=== PATIENT | male | born 1955 | race Caucasian/White ===

== ENCOUNTER 2019-12-04 20:48 | Observation (INO) ==
--- OUTSIDE RECORDS SUMMARY | 2019-12-04 20:49 | External Medical Summary | Continuity of Care Document ---
:1955 Author Name Courtney Trejo Address Unavailable Unavailable , Care Team Providers Name Role Phone [email or web address], [email or web address] Unavailable Unavailable Unavailable Unavailable Unavailable Assessments Assessed Problems:Shortness of breath Problems Shortness of breath (786.05) (R06.02) Allergies and Adverse Reactions Allergy history not documented Medications Ventolin HFA 108 (90 Base) MCG/ACT Inhal ation Aerosol Solution; Inhale 2 puffs by inhalation route every 4 - 6 hours as needed DO Julianne Tejeda Start: 15-Feb-2015 Quantity: 18 Refills: 0 Procedures Procedures not documented Immunizations Immunizations not documented Plan of Treatment Planned Observations Planned Goals not documented Results No Known Results Results not documented
[2019-12-04] MEDS ORDERED: SODIUM CHLORIDE 0.9% 1000ML 1,000 ML IV SCH (21:15)
[2019-12-04 21:26] LABS: Basophils # (auto) 0.01 K/uL (0-0.2); Basophils % (auto) 0.1 %; Eosinophils # (auto) 0.06 K/uL (0-0.5); Eosinophils % (auto) 0.8 %; Hematocrit (blood only) 45.1 % (42-52); Hemoglobin 15.2 g/dL (14.0-18.0); Immature Granulocytes # (auto) 0.03 K/uL (0.00-0.02); Immature Granulocytes % (auto) 0.4 %; Lymphocytes # (auto) 1.76 K/uL (1.2-3.4); Lymphocytes % (auto) 24.9 %; Mean Corpuscular Hemoglobin 29.3 pg (25-34); Mean Corpuscular Hgb Conc 33.7 g/dL (32-36); Mean Corpuscular Volume 86.9 fL (80-100); Mean Platelet Volume 11.8 fL (7.4-10.4); Monocytes # (auto) 0.41 K/uL (0.11-0.59); Monocytes % (auto) 5.8 %; Neutrophils # (auto) 4.81 K/uL (1.4-6.5); Platelet Count 120 K/uL (130-400); RDW Coefficient of Variation 13.1 % (11.5-14.5); RDW Standard Deviation 41.9 fL (36.4-46.3); Red Blood Count 5.19 M/uL (4.7-6.1); White Blood Count 7.08 K/uL (4.8-10.8)
[2019-12-04] MEDS ORDERED: SODIUM CHLORIDE 0.9% 250 ML IV PRN (21:27)
--- NOTE | 2019-12-04 21:27 | Emergency Department Note ---
History of Present Illness General Chief complaint: Rectal Bleed Stated complaint: rectal bleed Time Seen by Provider: 12/04/19 20:59 Source: patient and family ( who is at the bedside) Mode of arrival: ambulatory Limitations: no limitations History of Present Illness This patient comes in after having blood in his stool. He had a colonoscopy done in [facility] today by Dr. Gomez. The patient reports that he had 5 polyps removed 3 that were frozen into by heat. He started having stomach gurgling around 6:00 and had liquid stool that was bright red blood he is had about 10 episodes. He does not have any significant abdominal pain. He is not on any blood thinners. No fever or chills or nausea or vomiting. He was COVID tested negative on Wednesday prior to the procedure. He is not been lightheaded or dizzy. No chest pain shortness of breath or cough. He does have a known history of polyps. Home Medications Home Medications Medication Instructions Recorded Confirmed Type albuterol sulfate 1 puff INHALATION Q4 PRN 12/04/19 12/04/19 History fluticasone propion-salmeterol 1 inh INHALATION BID 12/04/19 12/04/19 History [Wixela Inhub] olknoulp-onq-DU-lycopen-lutein 1 tab PO DAILY 12/04/19 12/04/19 History [Centrum Silver Men] Allergies Allergy/AdvReac Type Severity Reaction Status Date / Time Fish Containing Products Allergy Severe ANAPHYLAXIS Verified 12/04/19 21:46 levofloxacin Allergy Intermediate SOB-HIVES Verified 12/04/19 21:46 Penicillins Allergy Intermediate SOB--HIVES Verified 12/04/19 21:46 Past Med/Surg History Social History Preferred Language: Lao Feels Safe at Home: Yes Smoking Status: Former smoker Review of Systems A total of 10 systems reviewed and were otherwise negative Physical Exam Vital Signs Vital Signs - 24 hr 12/04/19 20:52 12/04/19 21:28 12/04/19 22:21 Temperature 36.5 C Temperature Source Oral Pulse Rate 76 Pulse Rate [Apical] 84 Respiratory Rate 16 18 Respiratory Effort / Characteristics Non-Labored Spontaneous Non-Labored Respiratory Depth Normal Normal Respiratory Pattern Regular Blood Pressure 147/84 H Blood Pressure [Right Arm] 131/75 Blood Pressure Mean 105 Blood Pressure Mean [Right Arm] 93 Pulse Oximetry 95 97 Oxygen Delivery Method Room Air Room Air Room Air Sepsis Recent Fever Within 48 Hours No Sepsis New/Unexplained Change in Mental Status No Sepsis Action Taken by Nursing No Action Required General: Well developed well nourished middle-age male who in no acute distress, breathing comfortably on room air. Normal speech HEENT: Normal cephalic atraumatic. Pupils are equal round and reactive to light. Sclera are anicteric extraocular movements are intact. Oropharynx is pink with moist mucous membranes. No swelling of the mouth lips or tongue. Neck: Supple with a midline trachea. No meningeal signs or stiffness, no JVD or bruits. No Stridor. Chest: Clear to auscultation bilaterally. No wheezes or rhonchi. No increased work of breathing. Heart: Regular rate and rhythm without murmurs or gallops. Abdomen: Soft nontender, nondistended without rebound guarding or rigidity. He did have a bowel movement in a hat in the toilet and it was a about 75 cc of maroon stool Extremities: No cyanosis clubbing or edema. No calf tenderness or assymetry Spine/Back. Non tender to palpation. No CVA tenderness Skin: Good turgor without rashes. Neurologic exam: Cranial nerves two through 12 are intact. Motor and sensation are intact and symmetrical throughout. Course Administered Medications Discontinued Medications Sodium Chloride (Nss 1000ml) 1,000 mls @ 999 mls/hr IV .Q1H1M DEIDRE Stop: 12/04/19 22:15 Last Infusion: 12/04/19 22:19 Dose: 0 mls/hr Documented by: [id number] Admin: 12/04/19 21:20 Dose: 999 mls/hr Documented by: [id number] Medical Decision Making Differential Diagnosis GI bleed, post procedure complication, anemia, infection, electrolyte or metabolic abnormality Medical Records Attestation: I reviewed the patient's medical records. Home Medications Current Medication List: was personally reviewed by me Laboratory Data Attestation: I reviewed the patient's lab results. Result diagrams: 12/04/19 21:16 12/04/19 21:16 Lab Results 12/04/19 12/04/19 12/04/19 Range/Units 21:15 21:16 21:16 WBC 7.08 (4.8-10.8) K/uL RBC 5.19 (4.7-6.1) M/uL Hgb 15.2 (14.0-18.0) g/dL Hct 45.1 (42-52) % MCV 86.9 (80-100) fL MCH 29.3 (25-34) pg MCHC 33.7 (32-36) g/dL RDW Std Deviation 41.9 (36.4-46.3) fL RDW Coeff of Kody 13.1 (11.5-14.5) % Plt Count 120 L (130-400) K/uL MPV 11.8 H (7.4-10.4) fL Immature Gran % (Auto) 0.4 % Neut % (Auto) 68.0 % Lymph % (Auto) 24.9 % Coleman % (Auto) 5.8 % Eos % (Auto) 0.8 % Baso % (Auto) 0.1 % Neut # (Auto) 4.81 (1.4-6.5) K/uL Lymph # (Auto) 1.76 (1.2-3.4) K/uL Coleman # (Auto) 0.41 (0.11-0.59) K/uL Eos # (Auto) 0.06 (0-0.5) K/uL Baso # (Auto) 0.01 (0-0.2) K/uL Immature Gran # (Auto) 0.03 H (0.00-0.02) K/uL PT (9.0-12.0) Seconds INR (0.9-1.1) APTT (21.0-31.0) Seconds PTT Ratio Sodium (136-145) mmol/L Potassium (3.5-5.1) mmol/L Chloride (98-107) mmol/L Carbon Dioxide (21-32) mmol/L Anion Gap (3-11) BUN (7-18) mg/dl Creatinine (0.6-1.4) mg/dl Est Cr Clr Drug Dosing ml/min Est GFR ( Amer) Est GFR (Non-Af Amer) BUN/Creatinine Ratio (10-20) Glucose (70-99) mg/dl Calcium (8.5-10.1) mg/dl Total Bilirubin (0.2-1) mg/dl AST (15-37) U/L ALT (12-78) U/L Alkaline Phosphatase (45-117) U/L Total Protein (6.4-8.2) gm/dl Albumin (3.4-5.0) gm/dl Globulin (2.5-4.0) gm/dl Albumin/Globulin Ratio (0.9-2) POC Stool Occult Blood Positive A (Negative) Blood Type A Positive Antibody Screen NEGATIVE Crossmatch See Detail 12/04/19 12/04/19 Range/Units 21:16 21:16 WBC (4.8-10.8) K/uL RBC (4.7-6.1) M/uL Hgb (14.0-18.0) g/dL Hct (42-52) % MCV (80-100) fL MCH (25-34) pg MCHC (32-36) g/dL RDW Std Deviation (36.4-46.3) fL RDW Coeff of Kody (11.5-14.5) % Plt Count (130-400) K/uL MPV (7.4-10.4) fL Immature Gran % (Auto) % Neut % (Auto) % Lymph % (Auto) % Coleman % (Auto) % Eos % (Auto) % Baso % (Auto) % Neut # (Auto) (1.4-6.5) K/uL Lymph # (Auto) (1.2-3.4) K/uL Coleman # (Auto) (0.11-0.59) K/uL Eos # (Auto) (0-0.5) K/uL Baso # (Auto) (0-0.2) K/uL Immature Gran # (Auto) (0.00-0.02) K/uL PT 11.6 (9.0-12.0) Seconds INR 1.1 (0.9-1.1) APTT 31.4 H (21.0-31.0) Seconds PTT Ratio 1.1 Sodium 145 (136-145) mmol/L Potassium 4.0 (3.5-5.1) mmol/L Chloride 114 H (98-107) mmol/L Carbon Dioxide 25 (21-32) mmol/L Anion Gap 6.0 (3-11) BUN 21 H (7-18) mg/dl Creatinine 1.26 (0.6-1.4) mg/dl Est Cr Clr Drug Dosing 66.8 ml/min Est GFR ( Amer) 68.4 Est GFR (Non-Af Amer) 59.0 BUN/Creatinine Ratio 16.7 (10-20) Glucose 95 (70-99) mg/dl Calcium 8.6 (8.5-10.1) mg/dl Total Bilirubin 1.0 (0.2-1) mg/dl AST 17 (15-37) U/L ALT 22 (12-78) U/L Alkaline Phosphatase 63 (45-117) U/L Total Protein 6.5 (6.4-8.2) gm/dl Albumin 3.6 (3.4-5.0) gm/dl Globulin 2.9 (2.5-4.0) gm/dl Albumin/Globulin Ratio 1.2 (0.9-2) POC Stool Occult Blood (Negative) Blood Type Antibody Screen Crossmatch ECG Data Attestation: I personally reviewed and interpreted this ECG as follows: Indication: + other (GI bleed) Rate (beats per minute): 88 Rhythm: + normal sinus ECG Intervals/blocks: + Normal QRS, + Normal QT and + Normal NH ECG Lamar: + Normal ECG ST segments: + Normal ST segments ECG Findings: no PACs and no PVCs Comparison ECG Date: from (10/12/2009) Change: no significant change Blood Pressure Blood Pressure Findings: Elevated blood pressure Blood Pressure Disposition: elevated BP felt to be situational MDM Narrative This patient comes in after having a GI bleed after having several polyps removed. He is was hemodynamically stable initially but given the amount of bleeding he reports I was concerned so we establish an IV give him a 1 L IV fluid bolus and typed and screened for possible transfusion. He then had a bowel movement that had about 75 cc of maroon stool in light of this I am going to type and cross him for 4 units. His EKG shows normal sinus rhythm without any tachycardia. He has no significant electrolyte or metabolic abnormalities. Due to the multiple episodes of bloody bowel movements, I did call and talk to Dr. Sommer who is covering tonight for Dr. Gomez. He recommends admitting the patient for recheck and monitoring. He has reviewed the records and feels he is most likely bleeding from the cecal polyp that was removed. He says that there is a 90% chance that this will stop on his own. He said that if the bleeding persist by 6 or 7 in the morning then the admitting team should st art him on [place] to prep him for colonoscopy tomorrow. I did discuss the case with who will be admitting him for further treatment and evaluation Continuous cardiac monitoring: An order was placed for continuous cardiac monitoring. He was noted to be in normal sinus rhythm with a rate of 76 Impression & Plan Lower gastrointestinal hemorrhage, Hematochezia, Post-polypectomy bleeding Discharge Plan Visit Data Chief Complaint: Rectal Bleed Stated Complaint: rectal bleed ED Provider: Beck Her Discharge Problem: Lower gastrointestinal hemorrhage, Hematochezia, Post-polypectomy bleeding Forms Stand Alone Forms: My [facility] Prescriptions Prescriptions: No Action fluticasone propion-salmeterol [Wixela Inhub] 250-50 mcg/dose blister with dev ice 1 inh INHALATION BID RF: 0 albuterol sulfate 90 mcg/actuation HFA aerosol inhaler 1 puff INHALATION Q4 PRN (Reason: Shortness Of Breath Or Wheezing) RF: 0 Centrum Silver Men 300-600-300 mcg Tablet 1 tab PO DAILY RF: 0
[2019-12-04 21:37] LABS: INR 1.1 (0.9-1.1); Partial Thromboplastin Ratio 1.1; Partial Thromboplastin Time 31.4 Seconds (21.0-31.0); Prothrombin Time 11.6 Seconds (9.0-12.0)
[2019-12-04 21:42] LABS: Albumin Level 3.6 gm/dl (3.4-5.0); BUN Creatinine Ratio 16.7 (10-20); Calcium 8.6 mg/dl (8.5-10.1); Creatinine Clr Calc Pharmacy 66.8 ml/min; Est GFR (African American) 68.4
[2019-12-04 21:45] LABS: Albumin Globulin Ratio 1.2 (0.9-2); Globulin 2.9 gm/dl (2.5-4.0); Total Protein 6.5 gm/dl (6.4-8.2)
--- NOTE | 2019-12-05 00:29 | History and Physical Report ---
DATE OF ADMISSION: 12/04/2019 CHIEF COMPLAINT: Rectal bleed. HISTORY OF PRESENT ILLNESS: A 64-year-old male with past medical history significant for asthma with severity to be determined, cirrhosis of liver, history of alcohol abuse, generalized osteoarthritis, he is status post colonoscopy today, had 6 polyps taken out, one of the polyp in cecal region. He says he went home and slept and woke up in the evening and had dinner around 5:30 p.m., after sometime of dinner felt a gurgling noise in the stomach, and then he has had several episodes of bloody bowel movements. In the ER, he still having bloody bowel movement, but his hemodynamics are stable. His hemoglobin is stable. ER physician talked to the GI, they want to observe in the hospital and if he continues to bleed, plan for colonoscopy tomorrow. Denies any abdominal pain, no nausea, no vomiting, no chest pain or shortness of breath. No cough, no headache, no blurred vision, no dizziness, no runny nose, no sore throat. Normal bladder movements. No rash. Currently, resting comfortable and hemodynamically stable. ALLERGIES: LEVAQUIN, PENICILLIN, FISH OIL. PAST MEDICAL HISTORY: As mentioned above. PAST SURGICAL HISTORY: EGDs with biopsy, appendectomy, tonsillectomy, colonoscopy. MEDICATIONS: The patient is on albuterol 1 puff q. 4 hours p.r.n., Quikhale 1 inhalation b.i.d., multivitamin with minerals 1 tablet p.o. daily. FAMILY HISTORY: Significant for father had colon cancer, diabetes, and heart disorder. SOCIAL HISTORY: , quit smoking in , alcohol, last drink was in August 2009. No drug use. REVIEW OF SYMPTOMS: As per HPI. Rest of review of symptoms negative. PHYSICAL EXAMINATION: GENERAL: The patient is of moderate build, not in acute distress. VITAL SIGNS: Temperature 36.5, pulse 84, respiratory rate 18, blood pressure 131/75, oxygen 97% room air. HEENT: No pallor, no icterus. NECK: No JVD, no neck masses, no carotid bruit. CARDIOVASCULAR: S1, S2 heard, regular rate and rhythm. No murmurs, no gallop. RESPIRATORY SYSTEM: Normal AP diameter. No accessory muscle use. No wheezing, no crackles. ABDOMEN: Soft, bowel sounds present, nontender. No distention, no guarding, no rigidity. CENTRAL NERVOUS SYSTEM: Cranial nerves II-XII grossly intact, nonfocal. EXTREMITIES: No edema, no erythema. LABORATORY DATA: WBC 7.08, hemoglobin 15.2, hematocrit 45.1, platelets 120. PT 11.6, INR 1.1, APTT 31.4. Sodium 145, potassium 4, chloride 111, CO2 25, BUN 21, creatinine 1.2, serum glucose 95, calcium 8.6, total bilirubin 1, AST 17, ALT 22, alkaline phosphatase of 63. Point of care occult blood is positive. ASSESSMENT AND PLAN: This is a 64-year-old male who presents with rectal bleeding. 1. Rectal bleed post-colonoscopy and polypectomy, 6 polyps were taken, one of the polyp in the cecal area could be the cause of this bleeding. Hemoglobin is stable. If he continues to bleed, plan for colonoscopy in a.m. Consulted GI We will keep him n.p.o., IV fluids. Will follow labs in am.Monitor in the med/tele. 2. Thrombocytopenia . Platelets 120.Mostly from his liver cirrhosis, history of alcoholism in the past. 3. Asthma: Continue his home inhalers, currently stable. 4. Deep venous thrombosis prophylaxis: Sequential compression devices. DISPOSITION: Closely monitor in med/tele. Level 1 full code. Expect discharge home and follow with family doctor. KENN
[2019-12-05] MEDS ORDERED: ONDANSETRON INJ 2 MG/ML 2 ML VIAL IV PRN (01:04)
[2019-12-05] MEDS ORDERED: NITROGLYCERIN SL 0.4 MG/TAB TAB SL PRN (01:04)
[2019-12-05] MEDS ORDERED: ACETAMINOPHEN 325 MG TAB PO PRN (01:04)
[2019-12-05] MEDS ORDERED: ALBUTEROL HFA 8 GM INHALER INH PRN (01:04)
[2019-12-05] MEDS: SODIUM CHLORIDE 0.9% 1000ML 1,000 ML IV SCH ×2 (01:46→16:10)
[2019-12-05 07:16] LABS: Basophils # (auto) 0.01 K/uL (0-0.2); Basophils % (auto) 0.2 %; Eosinophils # (auto) 0.03 K/uL (0-0.5); Eosinophils % (auto) 0.6 %; Hematocrit (blood only) 33.7 % (42-52); Hemoglobin 10.8 g/dL (14.0-18.0); Immature Granulocytes # (auto) 0.01 K/uL (0.00-0.02); Immature Granulocytes % (auto) 0.2 %; Lymphocytes # (auto) 1.37 K/uL (1.2-3.4); Mean Corpuscular Hemoglobin 27.8 pg (25-34); Mean Corpuscular Volume 86.9 fL (80-100); Mean Platelet Volume 11.6 fL (7.4-10.4); Monocytes # (auto) 0.41 K/uL (0.11-0.59); Monocytes % (auto) 8.7 %; Neutrophils % (auto) 61.3 %; Platelet Count 91 K/uL (130-400); Platelet Estimate Decreased (Normal); RDW Coefficient of Variation 13.3 % (11.5-14.5); RDW Standard Deviation 42.5 fL (36.4-46.3); Red Blood Count 3.88 M/uL (4.7-6.1); White Blood Count 4.73 K/uL (4.8-10.8)
[2019-12-05 07:19] LABS: BUN Creatinine Ratio 21.7 (10-20); Calcium 7.8 mg/dl (8.5-10.1); Creatinine Clr Calc Pharmacy 79.6 ml/min; Est GFR (African American) 84.3; Est GFR (Non-African American) 72.8; Potassium 4.1 mmol/L (3.5-5.1)
[2019-12-05] MEDS: FLUTICASONE/VILANTEROL 200/25MCG 14 PUFFS/INHALER INH SCH (08:48)
--- NOTE | 2019-12-05 09:25 | Gastrointestinal Consultation ---
Date of Consultation December 05, 2019 Assessment & Plan (1) Post-polypectomy bleedin64 year old male admitted w/ cramping, bleeding POD#1 colonoscopy w/ polypectomy, two 2 to 3 mm polyps in the transverse colon and in the ascending colon, removed with a cold snare. One 5 mm polyp at the hepatic flexure, removed with a cold snare. One 10 mm polyp at the hepatic flexure, removed using injection-lift and a hot snare. One 10 mm polyp in the cecum, removed using injection-lift and a hot snare NPO Tap water enema Colonoscopy today Trend H&H Monitor and document stools Transfuse PRN Thank you for allowing us to participate in the care of this patient. Please call with any acute changes, questions or concerns. Please see addendum below with additional recommendation from my supervising physician. Supervising Physician Co-Signing Physician Notes I saw and evaluated the patient. He underwent a routine colonoscopy yesterday with removal of several colonic polyps. He did have 2 moderate-sized polyps removed from the cecum and the hepatic flexure. He presented with recurrent bleeding over the last evening. He notes that he has had repeated rectal bleeding without solid component this morning. Physical exam No apparent distress No abdominal tenderness Impression: Patient with suspected post polypectomy bleeding. We are planning for colonoscopy today, risks discussed include bleeding, infection, perforation, pain and need for follow-up studies. Plan Colonoscopy today History of Present Illness Reason for Consultation: rectal bleeding post colon w/ polyp removal Requesting Physician: Nathen Attending Physician: Dona Sena MD History of Present Illness 64 year old male with history of asthma, cirrhosis, OA who presents with rectal bleeding following colonoscopy today w/ polypectomy x 6. Notes he went home, ate some sandwiches took a nap. Woke up w/ gurgling and abd cramping. Ate dinner. After he noted several loose bloody BMs. this persisted and he sought ED evaluation. this AM still passing BRB. No clots. No melena. No lightheadedness, dizziness, CP, SOB. Colonoscopy 2019: Diverticulosis in the entire examined colon. - Two 2 to 3 mm polyps in the transverse colon and in the ascending colon, removed with a cold snare. Resected and retrieved. - One 5 mm polyp at the hepatic flexure, removed with a cold snare. Resected and retrieved. - One 10 mm polyp at the hepatic flexure, removed using injection-lift and a hot snare. Resected and retrieved. - One 10 mm polyp in the cecum, removed using injection-lift and a hot snare. Resected and retrieved. - The examination was otherwise normal. Allergies Allergy/AdvReac Type Severity Reaction Status Date / Time Fish Containing Products Allergy Severe ANAPHYLAXIS Verified 12/04/19 21:46 levofloxacin Allergy Intermediate SOB-HIVES Verified 12/04/19 21:46 Penicillins Allergy Intermediate SOB--HIVES Verified 12/04/19 21:46 Home Medications Home Medications Medication Instructions Recorded Confirmed Type albuterol sulfate 1 puff INHALATION Q4 PRN 12/04/19 12/04/19 History fluticasone propion-salmeterol 1 inh INHALATION BID 12/04/19 12/04/19 History [Wixela Inhub] rcaunial-ksm-PY-lycopen-lutein 1 tab PO DAILY 12/04/19 12/04/19 History [Centrum Silver Men] Patient History Social History Preferred Language: Uzbek 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 Beliefs That Will Affect Care: None Current Living Situation: Spouse Other Information That Helps Us Care for You: No Feels Safe at Home: Yes Safety Concerns: Feels Safe At This Time Smoking Status: Former smoker Tobacco Type: cigarettes ; Do You Dip or Chew Tobacco: Yes ; Second Hand Exposure: No ; Tobacco Cessation Education Requested by Patient: No Hx Alcohol Use: No Hx Substance Use: No Review of Systems Constitutional: no fever, no chills, no fatigue and no anorexia Respiratory: no cough, no dyspnea, no pain with cough and no sputum production Cardiovascular: no chest pain, no radiating jaw, neck or arm pain, no dyspnea on exertion and no palpitations Gastrointestinal: + change in bowel habits, + diarrhea/loose stools and + blood in stools; no belching, no heartburn, no coffee ground emesis, no dysphagia and no melena Physical Exam Constitutional: WD/WN, vitals as above + obese; no acute distress and not ill appearing Neck: trachea midline Respiratory: normal respiratory effort, lungs clear to auscultation Auscultation: no crackles, no rales and no rhonchi Cardiovascular: Rate/Rhythm: regular rate Palpation: no thrill Vessels: no carotid bruit Extremities: no pedal edema and no edema Gastrointestinal (Abdomen): Percussion/Palpation: + abdomen tender and abdomen soft; no guarding, abdomen not rigid, no abdominal mass and no ascites BRB was visualized in toilet bowl Skin: no rashes, warm and dry Results & Data ([facility]) Vital Signs (Past 12 Hours) Vital Signs Temp Pulse Pulse Pulse Resp BP Pulse Ox 12/05/19 07:13 36.4 C L 69 18 113/69 97 12/05/19 05:12 72 12/05/19 03:54 36.8 C 72 18 104/69 98 12/05/19 01:00 36.7 C 78 18 134/85 99 12/05/19 00:41 74 18 137/70 97 12/04/19 22:21 84 18 131/75 97 Laboratory Results 12/05/19 12/05/19 12/04/19 Range/Units 06:31 06:31 21:16 WBC 4.73 L (4.8-10.8) K/uL RBC 3.88 L (4.7-6.1) M/uL Hgb 10.8 L D (14.0-18.0) g/dL Hct 33.7 L (42-52) % MCV 86.9 (80-100) fL MCH 27.8 (25-34) pg MCHC 32.0 (32-36) g/dL RDW Std Deviation 42.5 (36.4-46.3) fL RDW Coeff of Kody 13.3 (11.5-14.5) % Plt Count 91 L (130-400) K/uL MPV 11.6 H (7.4-10.4) fL Immature Gran % (Auto) 0.2 % Neut % (Auto) 61.3 % Lymph % (Auto) 29.0 % [place] % (Auto) 8.7 % Eos % (Auto) 0.6 % Baso % (Auto) 0.2 % Neut # (Auto) 2.90 (1.4-6.5) K/uL Lymph # (Auto) 1.37 (1.2-3.4) K/uL [place] # (Auto) 0.41 (0.11-0.59) K/uL Eos # (Auto) 0.03 (0-0.5) K/uL Baso # (Auto) 0.01 (0-0.2) K/uL Immature Gran # (Auto) 0.01 (0.00-0.02) K/uL Platelet Estimate Decreased L (Normal) PT (9.0-12.0) Seconds INR (0.9-1.1) APTT (21.0-31.0) Seconds PTT Ratio Sodium 147 H 145 (136-145) mmol/L Potassium 4.1 4.0 (3.5-5.1) mmol/L Chloride 119 H 114 H (98-107) mmol/L Carbon Dioxide 24 25 (21-32) mmol/L Anion Gap 4.0 6.0 (3-11) BUN 23 H 21 H (7-18) mg/dl Creatinine 1.06 1.26 (0.6-1.4) mg/dl Est Cr Clr Drug Dosing 79.6 66.8 ml/min Est GFR ( Amer) 84.3 68.4 Est GFR (Non-Af Amer) 72.8 59.0 BUN/Creatinine Ratio 21.7 H 16.7 (10-20) Glucose 87 95 (70-99) mg/dl Calcium 7.8 L 8.6 (8.5-10.1) mg/dl Magnesium 2.0 (1.8-2.4) mg/dl Total Bilirubin 1.0 (0.2-1) mg/dl AST 17 (15-37) U/L ALT 22 (12-78) U/L Alkaline Phosphatase 63 (45-117) U/L Total Protein 6.5 (6.4-8.2) gm/dl Albumin 3.6 (3.4-5.0) gm/dl Globulin 2.9 (2.5-4.0) gm/dl Albumin/Globulin Ratio 1.2 (0.9-2) POC Stool Occult Blood (Negative) Blood Type Antibody Screen Crossmatch 12/04/19 12/04/19 12/04/19 Range/Units 21:16 21:16 21:16 WBC 7.08 (4.8-10.8) K/uL RBC 5.19 (4.7-6.1) M/uL Hgb 15.2 (14.0-18.0) g/dL Hct 45.1 (42-52) % MCV 86.9 (80-100) fL MCH 29.3 (25-34) pg MCHC 33.7 (32-36) g/dL RDW Std Deviation 41.9 (36.4-46.3) fL RDW Coeff of Kody 13.1 (11.5-14.5) % Plt Count 120 L (130-400) K/uL MPV 11.8 H (7.4-10.4) fL Immature Gran % (Auto) 0.4 % Neut % (Auto) 68.0 % Lymph % (Auto) 24.9 % [place] % (Auto) 5.8 % Eos % (Auto) 0.8 % Baso % (Auto) 0.1 % Neut # (Auto) 4.81 (1.4-6.5) K/uL Lymph # (Auto) 1.76 (1.2-3.4) K/uL [place] # (Auto) 0.41 (0.11-0.59) K/uL Eos # (Auto) 0.06 (0-0.5) K/uL Baso # (Auto) 0.01 (0-0.2) K/uL Immature Gran # (Auto) 0.03 H (0.00-0.02) K/uL Platelet Estimate (Normal) PT 11.6 (9.0-12.0) Seconds INR 1.1 (0.9-1.1) APTT 31.4 H (21.0-31.0) Seconds PTT Ratio 1.1 Sodium (136-145) mmol/L Potassium (3.5-5.1) mmol/L Chloride (98-107) mmol/L Carbon Dioxide (21-32) mmol/L Anion Gap (3-11) BUN (7-18) mg/dl Creatinine (0.6-1.4) mg/dl Est Cr Clr Drug Dosing ml/min Est GFR ( Amer) Est GFR (Non-Af Amer) BUN/Creatinine Ratio (10-20) Glucose (70-99) mg/dl Calcium (8.5-10.1) mg/dl Magnesium (1.8-2.4) mg/dl Total Bilirubin (0.2-1) mg/dl AST (15-37) U/L ALT (12-78) U/L Alkaline Phosphatase (45-117) U/L Total Protein (6.4-8.2) gm/dl Albumin (3.4-5.0) gm/dl Globulin (2.5-4.0) gm/dl Albumin/Globulin Ratio (0.9-2) POC Stool Occult Blood (Negative) Blood Type A Positive Antibody Screen NEGATIVE Crossmatch See Detail 12/04/19 Range/Units 21:15 WBC (4.8-10.8) K/uL RBC (4.7-6.1) M/uL Hgb (14.0-18.0) g/dL Hct (42-52) % MCV (80-100) fL MCH (25-34) pg MCHC (32-36) g/dL RDW Std Deviation (36.4-46.3) fL RDW Coeff of Kody (11.5-14.5) % Plt Count (130-400) K/uL MPV (7.4-10.4) fL Immature Gran % (Auto) % Neut % (Auto) % Lymph % (Auto) % [place] % (Auto) % Eos % (Auto) % Baso % (Auto) % Neut # (Auto) (1.4-6.5) K/uL Lymph # (Auto) (1.2-3.4) K/uL [place] # (Auto) (0.11-0.59) K/uL Eos # (Auto) (0-0.5) K/uL Baso # (Auto) (0-0.2) K/uL Immature Gran # (Auto) (0.00-0.02) K/uL Platelet Estimate (Normal) PT (9.0-12.0) Seconds INR (0.9-1.1) APTT (21.0-31.0) Seconds PTT Ratio Sodium (136-145) mmol/L Potassium (3.5-5.1) mmol/L Chloride (98-107) mmol/L Carbon Dioxide (21-32) mmol/L Anion Gap (3-11) BUN (7-18) mg/dl Creatinine (0.6-1.4) mg/dl Est Cr Clr Drug Dosing ml/min Est GFR ( Amer) Est GFR (Non-Af Amer) BUN/Creatinine Ratio (10-20) Glucose (70-99) mg/dl Calcium (8.5-10.1) mg/dl Magnesium (1.8-2.4) mg/dl Total Bilirubin (0.2-1) mg/dl AST (15-37) U/L ALT (12-78) U/L Alkaline Phosphatase (45-117) U/L Total Protein (6.4-8.2) gm/dl Albumin (3.4-5.0) gm/dl Globulin (2.5-4.0) gm/dl Albumin/Globulin Ratio (0.9-2) POC Stool Occult Blood Positive A (Negative) Blood Type Antibody Screen Crossmatch
--- NOTE | 2019-12-05 12:28 | Anesthesiology Consultation ---
Date of Service December 05, 2019 Assessment & Plan (1) Encounter for pre-operative examination: Chart Review Chart Review: Acceptable Risk for Surgery and Patient NOT seen in Pre Admission Testing Consults Requested none ASA ASA2 Proposed Anesthesia Anesthesia Type: MAC Risk / Benefits Reviewed With: PT / POA / Parent / Guardian, Accepts Plan and Informed Consent Obtained History Surgery Operation Date: 12/05/19 15:30 Proposed Procedures p Colonoscopy Dr Angelo Stephens Height/Weight Height: 5 ft 11 in Weight: 92.2 kg Allergies Allergy/AdvReac Type Severity Reaction Status Date / Time Fish Containing Products Allergy Severe ANAPHYLAXIS Verified 12/04/19 21:46 levofloxacin Allergy Intermediate SOB-HIVES Verified 12/04/19 21:46 Penicillins Allergy Intermediate SOB--HIVES Verified 12/04/19 21:46 Medications Home Medications Medication Instructions Recorded Confirmed Last Taken albuterol sulfate 1 puff INHALATION Q4 PRN 12/04/19 12/04/19 Unknown fluticasone propion-salmeterol 1 inh INHALATION BID 12/04/19 12/04/19 12/04/19 09:00 [Wixela Inhub] [id number]-cal-QY-lycopen-lutein 1 tab PO DAILY 12/04/19 12/04/19 12/04/19 [Centrum Silver Men] Active Medications Generic Name Dose Route Start Last Admin Trade Name Freq PRN Reason Stop Dose Admin Fluticasone/Vilanterol 1 puffs 12/05/19 09:00 12/05/19 08:48 Breo Ellipta 200/25 Mcg Inh INH 01/04/20 08:59 1 puffs DAILY DEIDRE Administration Sodium Chloride 1,000 mls @ 80 mls/hr 12/05/19 01:04 12/05/19 11:30 Nss 1000ml IV 01/04/20 01:03 0 mls/hr .[id number] DEIDRE Infusion NPO Date Last Intake of Fluids: 12/04/19 Time Last Intake of Fluids: 16:30 Date Last Intake of Solids: 12/04/19 Time Last Intake of Solids: 16:30 Exercise / Class Metabolic Activity II 4-5 Yardwork/Stairs/Walk up hill Past Anesthesia History No Hx of Anesthesia Complications and No Family Hx of Anesthesia Complications History of PONV No Hx of PONV and No Hx of Motion Sickness Social History Smoking Status: Former smoker tobacco type: cigarettes Do You Dip or Chew Tobacco: Yes Hx Alcohol Use: No Hx Substance Use: No Physical Exam Vital Signs Last Vital Signs Temp 36.6 C 12/05/19 12:01 Pulse 78 12/05/19 12:01 Resp 18 12/05/19 12:01 BP 123/71 12/05/19 12:01 Pulse Ox 97 12/05/19 12:01 ENMT Mouth: no dentition abnormality Thyromental Distance: > or= 3.5 Finger Breadths Mallampati Class: II Neck normal visual inspection Respiratory normal respiratory effort Auscultation: lungs clear to auscultation bilaterally Cardiovascular Rate/Rhythm: regular rate and regular rhythm Psychiatric Orientation: alert Testing Laboratory Results 12/05/19 06:31 12/05/19 06:31 PT 11.6 Seconds (9.0-12.0) 12/04/19 21:16 INR 1.1 (0.9-1.1) 12/04/19 21:16 APTT 31.4 Seconds (21.0-31.0) H 12/04/19 21:16 Blood Type A Positive 12/04/19 21:16 Antibody Screen NEGATIVE 12/04/19 21:16
[2019-12-05] MEDS ORDERED: LIDOCAINE HCL 2% 2 ML VIAL/AMP(20MG/ML) INFIL ONE (12:34)
[2019-12-05] MEDS ORDERED: PROPOFOL IV EMULSION 10 MG/ML 20 ML VIAL IV ONE ×2 (12:34→13:17)
--- NOTE | 2019-12-05 12:36 | History & Physical Bridge Note ---
Date of Service December 05, 2019 History & Physical Bridge Note I have examined the patient, reviewed the History & Physical and in the interval since the performance of the History & Physical I have noted the following changes of clinical significance: no changes noted
[2019-12-05] MEDS ORDERED: EPINEPHrine INJ 1 MG/ML AMP ONE (12:55)
[2019-12-05] MEDS ORDERED: PHENYLEPHRINE 100MCG/ML 5ML SYR ONE (13:17)
--- NOTE | 2019-12-05 13:26 | GI REPORT ---
Patient Name: Castillo Tuttle Procedure Date: 12/05/2019 12:33 PM Date of : 1955 Admit Type: Inpatient Age: 64 Gender: Male Attending MD: Gal Stephens DO Procedure: Colonoscopy Providers: Gal Stephens DO Referring MD: Referred Self, Dimitri Gomez MD Indications: Hematochezia, Treatment of bleeding from polypectomy site Medicines: Monitored Anesthesia Care Complications: No immediate complications. Estimated blood loss: Minimal. Estimated Blood Loss: Estimated blood loss was minimal. Procedure: Pre-Anesthesia Assessment: - Prior to the procedure, a History and Physical was performed, and patient medications, allergies and sensitivities were reviewed. The patient's tolerance of previous anesthesia was reviewed. - The risks and benefits of the procedure and the sedation options and risks were discussed with the patient. All questions were answered and informed consent was obtained. - Patient identification and proposed procedure were verified prior to the procedure by the physician, the nurse and the polymerization kettle operator. The procedure was verified in the procedure room. - Pre-procedure physical examination revealed no contraindications to sedation. - ASA Grade Assessment: III - A patient with severe systemic disease. - After reviewing the risks and benefits, the patient was deemed in satisfactory condition to undergo the procedure. - The anesthesia plan was to use monitored anesthesia care (MAC). - Immediately prior to administration of medications, the patient was re-assessed for adequacy to receive sedatives. - The heart rate, respiratory rate, oxygen saturations, blood pressure, adequacy of pulmonary ventilation, and response to care were monitored throughout the procedure. - The physical status of the patient was re-assessed after the procedure. After I obtained informed consent, the scope was passed under direct vision. Throughout the procedure, the patient's blood pressure, pulse, and oxygen saturations were monitored continuously. The Colonoscope was introduced through the anus and advanced to the cecum, identified by appendiceal orifice and ileocecal valve. The colonoscopy was performed without difficulty. The patient tolerated the procedure well. The quality of the bowel preparation was fair. Findings: The perianal and digital rectal examinations were normal. Pertinent negatives include normal sphincter tone. Red blood and clots were found in the entire colon. Spurting blood was seen in the cecum, secondary to previous polypectomy procedure. Area was successfully injected with 5 mL of a 1:10,000 solution of epinephrine for hemostasis. For hemostasis, seven hemostatic clips ([employer]) were successfully placed (MR conditional). Due to persistent oozing, coagulation for hemostasis using 7 Fr bipolar probe was successful. This resulted in cessation of bleeding. Impression: - Preparation of the colon was fair. - Blood in the entire examined colon. - Bleeding in the cecum secondary to previous polypectomy. Injected. Clips (MR conditional) were placed. Treated with bipolar cautery. - No specimens collected. Recommendation: - Return patient to [facility] for ongoing care. - Clear liquid diet today. - No aspirin, ibuprofen, naproxen, or other non-steroidal anti-inflammatory drugs for 1 week. - If rebleeding occurs, patient would consider a referral to a center with IR capability. Gal Stephens D.O. Gal Stephens, 12/05/2019 1:25:42 PM This report has been signed electronically. Note Initiated On: 12/05/2019 12:33 PM Number of Addenda: 0 I attest to the content of the Intraoperative Record and orders documented therein, exceptions below {[id number]}
--- NOTE | 2019-12-05 13:27 | Communication Note ---
Date of Service: December 05, 2019 The patient underwent colonoscopy for suspected post polypectomy bleeding. He was bleeding from the cecal polypectomy site. This was treated with placement of a 7 RI conditional clips in addition to epinephrine injection and thermal therapy with a multipolar probe. Should the patient have recurrent bleeding he would be best served with a referral to a tertiary center for IR embolizatio or perhaps general surgery consultation locally.
[2019-12-05] MEDS ORDERED: fentaNYL citrate 100 MCG/2 ML VIAL IV STA (13:32)
[2019-12-05] MEDS ORDERED: PROMETHAZINE HCL 6.25 MG in SODIUM CHLORIDE 0.9% 50 ML IV ONE (13:45)
[2019-12-05] MEDS ORDERED: HYDROmorphone INJ 0.5 MG/0.5 ML SYR IV PRN (14:46)
--- NOTE | 2019-12-05 15:08 | Anesthesiology Progress Note ---
Date of Service December 05, 2019 Anesthesia Post Procedure Vital Signs Vital Signs: Temp Pulse Pulse Pulse Resp BP BP 12/05/19 14:36 36.4 C L 55 L 19 115/71 12/05/19 14:27 36.3 C L 51 L 16 106/64 12/05/19 13:55 60 14 122/71 12/05/19 13:41 67 16 150/87 H 12/05/19 13:24 65 16 131/82 12/05/19 12:01 36.6 C 78 18 123/71 12/05/19 11:15 36.6 C 79 19 110/69 12/05/19 07:13 36.4 C L 69 18 113/69 12/05/19 05:12 72 12/05/19 03:54 36.8 C 72 18 104/69 12/05/19 01:00 36.7 C 78 18 134/85 12/05/19 00:41 74 18 137/70 12/04/19 22:21 84 18 131/75 12/04/19 20:52 36.5 C 76 16 147/84 H Pulse Ox 12/05/19 14:36 95 12/05/19 14:27 96 12/05/19 13:55 97 12/05/19 13:41 95 12/05/19 13:24 99 12/05/19 12:01 97 12/05/19 11:15 97 12/05/19 07:13 97 12/05/19 05:12 12/05/19 03:54 98 12/05/19 01:00 99 12/05/19 00:41 97 12/04/19 22:21 97 12/04/19 20:52 95 Transfer of Care Handoff Completed per policy Notes Mental Status: alert / awake / arousable Patient Amnestic to Procedure: Yes Nausea / Vomiting: adequately controlled Pain: adequately controlled Airway Patency, RR, SpO2: stable & adequate BP & HR: stable & adequate Hydration State: stable & adequate Anesthetic Complications: no major complications apparent
[2019-12-05 15:45] LABS: Hematocrit (blood only) 28.5 % (42-52); Hemoglobin 9.9 g/dL (14.0-18.0)
--- NOTE | 2019-12-05 15:46 | Electrocardiogram Report ---
Test Reason : Blood Pressure : / mmHG Vent. Rate : 088 BPM Atrial Rate : 088 BPM P-R Int : 174 ms QRS Dur : 070 ms QT Int : 338 ms P-R-T Axes : 032 061 039 degrees QTc Int : 408 ms Normal sinus rhythm Normal ECG When compared with ECG of 12-OCT-2009 09:01, Nonspecific T wave abnormality no longer evident in Inferior leads Nonspecific T wave abnormality no longer evident in Lateral leads Confirmed by Satnam Prince ([id number]) on 12/05/2019 3:45:22 PM Referred By: REFERRED SELF Confirmed By:Sarbjit Prince
--- NOTE | 2019-12-05 17:19 | Hospitalist Progress Note ---
Date of Service December 05, 2019 Assessment & Plan (1) Lower gastrointestinal hemorrhage: Bright red blood per rectum following multiple polypectomy Significant drop in hemoglobin and associated with some abdominal pain Appreciate GI input and recommendation Status post colonoscopy and cauterization of the bleeding area Has been feeling better following the procedure We will monitor CBC (2) Post-polypectomy bleeding: Has had about 6 polyps removed on 12/04/2019 Spotting blood was seen in the cecum secondary to previous polypectomy procedure. The area was successfully cauterized No aspirin and/or NSAID use for at least 1 week If rebleeds will need to transfer to referral center with IR capability His other medical conditions including asthma,Possible cirrhosis with history of h alcoholism remains stable Likely be discharged tomorrow. Admission and Anticipated Discharge Date Admission Date: December 04, 2019 Subjective The patient was seen and examined in the medical telemetry unit He was still having bloody diarrhea when I saw him this morning He is status post colonoscopy Complains of abdominal pain otherwise stable Review of Systems Review of Systems: All systems reviewed and are unremarkable except as noted noted below Physical Exam Physical Exam: Lying in bed with discomfort in the tummy Constitutional: well developed, well nourished and + acute distress (Due to abdominal pain); not ill appearing Eyes: PERRL, conjunctivae normal, anicteric sclerae ENMT: external ear and nose normal, oropharynx normal Neck: trachea midline, no thyromegaly Respiratory: normal respiratory effort; no respiratory distress Auscultation: lungs clear to auscultation bilaterally Cardiovascular: Rate/Rhythm: regular rate and regular rhythm Heart Sounds: no murmur Gastrointestinal (Abdomen): Inspection/Auscultation: abdomen normal to inspection Percussion/Palpation: + abdomen tender (Lower quadrants) and abdomen soft; no guarding Musculoskeletal: No acute arthritis involving any joints Neurologic: moves all extremities; no focal motor deficits Lymphatic: no cervical or axillary lymphadenopathy Results & Data Results & Data ([facility]) Vital Signs (Past 12 Hours) Vital Signs Temp Pulse Pulse Resp BP Pulse Ox 12/05/19 15:26 66 18 114/64 98 12/05/19 15:00 48 L 12/05/19 14:36 36.4 C L 55 L 19 115/71 95 12/05/19 14:27 36.3 C L 51 L 16 106/64 96 12/05/19 13:55 60 14 122/71 97 12/05/19 13:41 67 16 150/87 H 95 12/05/19 13:24 65 16 131/82 99 12/05/19 12:01 36.6 C 78 18 123/71 97 12/05/19 11:15 36.6 C 79 19 110/69 97 12/05/19 07:13 36.4 C L 69 18 113/69 97 12/05/19 05:12 72 Laboratory Results Short CBC 12/04/19 12/05/19 12/05/19 Range/Units 21:16 06:31 15:22 WBC 7.08 4.73 L (4.8-10.8) K/uL Hgb 15.2 10.8 L D 9.9 L (14.0-18.0) g/dL Hct 45.1 33.7 L 28.5 L (42-52) % Plt Count 120 L 91 L (130-400) K/uL BMP 12/04/19 12/05/19 21:16 06:31 Sodium 145 147 H Potassium 4.0 4.1 Chloride 114 H 119 H Carbon Dioxide 25 24 BUN 21 H 23 H Creatinine 1.26 1.06 Glucose 95 87 Calcium 8.6 7.8 L Liver Function 12/04/19 Range/Units 21:16 Total Bilirubin 1.0 (0.2-1) mg/dl AST 17 (15-37) U/L ALT 22 (12-78) U/L Alkaline Phosphatase 63 (45-117) U/L Albumin 3.6 (3.4-5.0) gm/dl Medications Administered Current Inpatient Medications Acetaminophen (Tylenol) 650 mg PO Q4H PRN PRN Reason: Pain or Fever Stop: 01/04/20 01:03 Albuterol (Ventolin Hfa) 1 puffs INH Q4 PRN; Protocol PRN Reason: Shortness Of Breath Or Wheezin Stop: 01/04/20 01:03 Fluticasone/Vilanterol (Breo Ellipta 200/25 Mcg Inh) 1 puffs INH DAILY DEIDRE Stop: 01/04/20 08:59 Last Admin: 12/05/19 08:48 Dose: 1 puffs Documented by: Hydromorphone HCl (Dilaudid) 0.5 mg IV Q4H PRN PRN Reason: Pain Stop: 12/19/19 14:45 Last Admin: 12/05/19 15:30 Dose: 0.5 mg Documented by: Sodium Chloride (Nss 1000ml) 1,000 mls @ 80 mls/hr IV .[id number] DEIDRE Stop: 01/04/20 01:03 Last Admin: 12/05/19 16:10 Dose: 80 mls/hr Documented by: Nitroglycerin (Nitrostat) 0.4 mg SL UD PRN PRN Reason: Chest Pain Stop: 01/04/20 01:03 Ondansetron HCl (Zofran) 4 mg IV Q6H PRN PRN Reason: Nausea Stop: 01/04/20 01:03 Last Admin: 12/05/19 14:40 Dose: 4 mg Documented by:
[2019-12-05 21:16] LABS: Hematocrit (blood only) 25.5 % (42-52); Hemoglobin 8.6 g/dL (14.0-18.0)
[2019-12-05] MEDS ORDERED: SIMETHICONE 40 MG/0.6 ML 30ML PO ONE (23:13)
[2019-12-05] MEDS ORDERED: SIMETHICONE 80 MG CHEW PO ONE (23:13)
[2019-12-05] MEDS ORDERED: MoRPHine SULFATE 2 MG/ML CARP IV STA (23:14)
[2019-12-06 04:11] LABS: Hematocrit (blood only) 25.5 % (42-52); Hemoglobin 8.4 g/dL (14.0-18.0); Mean Corpuscular Hemoglobin 28.8 pg (25-34); Mean Corpuscular Hgb Conc 32.9 g/dL (32-36); Mean Corpuscular Volume 87.3 fL (80-100); RDW Coefficient of Variation 13.5 % (11.5-14.5); RDW Standard Deviation 43.5 fL (36.4-46.3); Red Blood Count 2.92 M/uL (4.7-6.1); White Blood Count 5.35 K/uL (4.8-10.8)
[2019-12-06 04:16] LABS: Mean Platelet Volume 10.5 fL (7.4-10.4); Platelet Count 89 K/uL (130-400)
[2019-12-06 04:26] LABS: Basophils # (auto) 0.01 K/uL (0-0.2); Basophils % (auto) 0.2 %; Eosinophils # (auto) 0.03 K/uL (0-0.5); Eosinophils % (auto) 0.6 %; Immature Granulocytes # (auto) 0.01 K/uL (0.00-0.02); Immature Granulocytes % (auto) 0.2 %; Lymphocytes # (auto) 1.38 K/uL (1.2-3.4); Lymphocytes % (auto) 25.8 %; Monocytes # (auto) 0.36 K/uL (0.11-0.59); Monocytes % (auto) 6.7 %; Neutrophils # (auto) 3.56 K/uL (1.4-6.5); Neutrophils % (auto) 66.5 %; RBC Morphology Unremarkable
[2019-12-06 04:32] LABS: BUN Creatinine Ratio 15.7 (10-20); Calcium 7.4 mg/dl (8.5-10.1); Creatinine Clr Calc Pharmacy 86.9 ml/min; Est GFR (African American) 93.9; Potassium 4.1 mmol/L (3.5-5.1)
[2019-12-06] MEDS: SODIUM CHLORIDE 0.9% 1000ML 1,000 ML IV SCH (04:42)
--- NOTE | 2019-12-06 08:32 | Gastroenterology Progress Note ---
Date of Service December 06, 2019 Assessment & Plan (1) Post-polypectomy bleedin64 year old male admitted w/ cramping, bleeding POD#1 colonoscopy w/ polypectomy, two 2 to 3 mm polyps in the transverse colon and in the ascending colon, removed with a cold snare. One 5 mm polyp at the hepatic flexure, removed with a cold snare. One 10 mm polyp at the hepatic flexure, removed using injection-lift and a hot snare. One 10 mm polyp in the cecum, removed using injection-lift and a hot snare. S/P colonoscopy w/ active bleeding in the cecum secondary to previous polypectomy, injected & clips were placed. He has had at least three large volume episode of rectal bleeding since his colonoscopy and notes the urge to have BM. Will TT primary service Discussed surgical evaluation verse IR evaluation Transfer for IR Trend HGB Monitor stools Transfuse PRN Thank you for allowing us to participate in the care of this patient. Please call with any acute changes, questions or concerns. Please see addendum below with additional recommendation from my supervising physician. Admission and Anticipated Discharge Date Admission Date: December 04, 2019 Supervising Physician Co-Signing Physician Notes Discussed the case with Ms. Park. Given the recurrent bleeding I think the patient may benefit from interventional radiology intervention as we did place 7 clips yesterday treated with epinephrine and cautery therapy Subjective Pt was seen and evaluated, chart reviewed. Has had 3/4 persistent large volume bloody stools since colonoscopy w/ clip placement Some abd cramping but no pain. No nausea/vomiting. No fever, chills, CP, SOB. Colonoscopy 2019: Preparation of the colon was fair. - Blood in the entire examined colon. - Bleeding in the cecum secondary to previous polypectomy. Injected. Clips (MR conditional) were placed. Treated with bipolar cautery. - No specimens collected. Review of Systems 2 Constitutional: no fever, no chills, no fatigue and no anorexia Respiratory: no cough, no dyspnea, no dyspnea on exertion and no pain with cough Cardiovascular: no chest pain, no dyspnea, no dyspnea on exertion and no ortho pnea Gastrointestinal: + blood in stools; no abdominal pain, no change in stools, no diarrhea/loose stools and no melena Physical Exam Constitutional: WD/WN, vitals as above + obese; no acute distress and not ill appearing Neck: trachea midline Respiratory: normal respiratory effort, lungs clear to auscultation Auscultation: no crackles, no rales and no rhonchi Cardiovascular: Rate/Rhythm: regular rate Palpation: no thrill Vessels: no carotid bruit Extremities: no pedal edema and no edema Gastrointestinal (Abdomen): Percussion/Palpation: + abdomen tender and abdomen soft; no guarding, abdomen not rigid, no abdominal mass and no ascites Skin: no rashes, warm and dry Results & Data ([facility]) Vital Signs (Past 12 Hours) Vital Signs Temp Pulse Pulse Resp BP Pulse Ox 12/06/19 07:15 37.1 C 65 18 106/63 97 12/06/19 03:37 36.7 C 69 18 112/68 96 12/06/19 02:37 70 12/05/19 23:35 36.8 C 71 18 123/68 98 Laboratory Results 12/06/19 12/06/19 12/05/19 Range/Units 03:56 03:56 21:07 WBC 5.35 (4.8-10.8) K/uL RBC 2.92 L (4.7-6.1) M/uL Hgb 8.4 L (14.0-18.0) g/dL Hct 25.5 L (42-52) % MCV 87.3 (80-100) fL MCH 28.8 (25-34) pg MCHC 32.9 (32-36) g/dL RDW Std Deviation 43.5 (36.4-46.3) fL RDW Coeff of Kody 13.5 (11.5-14.5) % Plt Count 89 L (130-400) K/uL MPV 10.5 H (7.4-10.4) fL Immature Gran % (Auto) 0.2 % Neut % (Auto) 66.5 % Lymph % (Auto) 25.8 % Smith % (Auto) 6.7 % Eos % (Auto) 0.6 % Baso % (Auto) 0.2 % Neut # (Auto) 3.56 (1.4-6.5) K/uL Lymph # (Auto) 1.38 (1.2-3.4) K/uL Smith # (Auto) 0.36 (0.11-0.59) K/uL Eos # (Auto) 0.03 (0-0.5) K/uL Baso # (Auto) 0.01 (0-0.2) K/uL Immature Gran # (Auto) 0.01 (0.00-0.02) K/uL RBC Morphology Unremarkable Sodium 146 H (136-145) mmol/L Potassium 4.1 (3.5-5.1) mmol/L Chloride 120 H (98-107) mmol/L Carbon Dioxide 23 (21-32) mmol/L Anion Gap 3.0 (3-11) BUN 15 (7-18) mg/dl Creatinine 0.97 (0.6-1.4) mg/dl Est Cr Clr Drug Dosing 86.9 ml/min Est GFR ( Amer) 93.9 Est GFR (Non-Af Amer) 81.0 BUN/Creatinine Ratio 15.7 (10-20) Glucose 86 (70-99) mg/dl Calcium 7.4 L (8.5-10.1) mg/dl Blood Type Blood Type Recheck A Positive Antibody Screen Crossmatch 12/05/19 12/05/19 12/04/19 Range/Units 21:06 15:22 21:16 WBC (4.8-10.8) K/uL RBC (4.7-6.1) M/uL Hgb 8.6 L 9.9 L (14.0-18.0) g/dL Hct 25.5 L 28.5 L (42-52) % MCV (80-100) fL MCH (25-34) pg MCHC (32-36) g/dL RDW Std Deviation (36.4-46.3) fL RDW Coeff of Kody (11.5-14.5) % Plt Count (130-400) K/uL MPV (7.4-10.4) fL Immature Gran % (Auto) % Neut % (Auto) % Lymph % (Auto) % Smith % (Auto) % Eos % (Auto) % Baso % (Auto) % Neut # (Auto) (1.4-6.5) K/uL Lymph # (Auto) (1.2-3.4) K/uL Smith # (Auto) (0.11-0.59) K/uL Eos # (Auto) (0-0.5) K/uL Baso # (Auto) (0-0.2) K/uL Immature Gran # (Auto) (0.00-0.02) K/uL RBC Morphology Sodium (136-145) mmol/L Potassium (3.5-5.1) mmol/L Chloride (98-107) mmol/L Carbon Dioxide (21-32) mmol/L Anion Gap (3-11) BUN (7-18) mg/dl Creatinine (0.6-1.4) mg/dl Est Cr Clr Drug Dosing ml/min Est GFR ( Amer) Est GFR (Non-Af Amer) BUN/Creatinine Ratio (10-20) Glucose (70-99) mg/dl Calcium (8.5-10.1) mg/dl Blood Type A Positive Blood Type Recheck Antibody Screen NEGATIVE Crossmatch See Detail
[2019-12-06] MEDS: FLUTICASONE/VILANTEROL 200/25MCG 14 PUFFS/INHALER INH SCH (08:37)
--- NOTE | 2019-12-06 08:54 | Hospitalist Progress Note ---
Date of Service December 06, 2019 Assessment & Plan (1) Lower gastrointestinal hemorrhage: Bright red blood per rectum following multiple polypectomy Significant drop in hemoglobin and associated with some abdominal pain GI consulted Now status post colonoscopy and cauterization of the bleeding area (12/05/2019) Has been feeling better following the procedure Unfortunately had about 3 large bowel movements, bloody overnight Contacted by GI this morning (12/05), recommend transfer to the tertiary center with IR availability for further evaluation We will monitor CBC Hemoglobin at 4 AM 8.4 Hemoglobin at 9 PM last evening, 8.6 Remains hemodynamically stable (2) Post-polypectomy bleeding: Has had about 6 polyps removed on 12/04/2019 Spotting blood was seen in the cecum secondary to previous polypectomy procedure. The area was successfully cauterized No aspirin and/or NSAID use for at least 1 week If rebleeds will need to transfer to referral center with IR capability His other medical conditions including asthma,Possible cirrhosis with history of alcoholism remains stable Discussed transfer with [facility] in [place], Dr. Longoria accepted the patient. Admission and Anticipated Discharge Date Admission Date: December 04, 2019 Subjective Hemoglobin last night 8.9, and early this morning 8.4. had about 3 bloody bowel movements since colonoscopy with clipping. Contacted by GI, that patient would need IR evaluation, and transfer. Patient is currently laying in bed, in no acute distress. Says that he is having bowel movements however they are less frequent than prior to colonoscopy with clipping. Denies any fevers, chills, chest pain, shortness of breath, lightheadedness or dizziness. He has mild abdominal cramping. Review of Systems Review of Systems: All systems reviewed & are unremarkable except as noted in HPI & below Constitutional: no fever and no chills Respiratory: no cough and no dyspnea Cardiovascular: no chest pain and no palpitations Gastrointestinal: + blood in stools; no abdominal pain and no vomiting Physical Exam Physical Exam: Physical Exam: Lying in bed in no acute distress, some discomfort in his abdomen Constitutional: well developed, well nourished, not ill appearing Eyes: PERRL, EOMI, conjunctivae normal, anicteric sclerae ENMT: external ear and nose normal, oropharynx normal Neck: trachea midline, no thyromegaly Respiratory: normal respiratory effort; no respiratory distress Auscultation: lungs clear to auscultation bilaterally Cardiovascular: Rate/Rhythm: regular rate and regular rhythm Heart Sounds: no murmur Gastrointestinal (Abdomen): Inspection/Auscultation: abdomen normal to inspection, + Only slightly tender to palpation (Lower quadrants), abdomen soft; no guarding Musculoskeletal: No acute arthritis involving any joints, moves extremities spontaneously and without difficulty Neuro/ Psych: Alert and oriented x3, no facial asymmetry, speech fluent, answers questions appropriately, moves all extremities; no focal motor deficits Results & Data Results & Data ([facility]) Vital Signs (Past 12 Hours) Vital Signs Temp Pulse Pulse Resp BP Pulse Ox 12/06/19 07:15 37.1 C 65 18 106/63 97 12/06/19 03:37 36.7 C 69 18 112/68 96 12/06/19 02:37 70 12/05/19 23:35 36.8 C 71 18 123/68 98 Laboratory Results 12/06/19 12/06/19 12/05/19 Range/Units 03:56 03:56 21:07 WBC 5.35 (4.8-10.8) K/uL RBC 2.92 L (4.7-6.1) M/uL Hgb 8.4 L (14.0-18.0) g/dL Hct 25.5 L (42-52) % MCV 87.3 (80-100) fL MCH 28.8 (25-34) pg MCHC 32.9 (32-36) g/dL RDW Std Deviation 43.5 (36.4-46.3) fL RDW Coeff of Kody 13.5 (11.5-14.5) % Plt Count 89 L (130-400) K/uL MPV 10.5 H (7.4-10.4) fL Immature Gran % (Auto) 0.2 % Neut % (Auto) 66.5 % Lymph % (Auto) 25.8 % [place] % (Auto) 6.7 % Eos % (Auto) 0.6 % Baso % (Auto) 0.2 % Neut # (Auto) 3.56 (1.4-6.5) K/uL Lymph # (Auto) 1.38 (1.2-3.4) K/uL [place] # (Auto) 0.36 (0.11-0.59) K/uL Eos # (Auto) 0.03 (0-0.5) K/uL Baso # (Auto) 0.01 (0-0.2) K/uL Immature Gran # (Auto) 0.01 (0.00-0.02) K/uL RBC Morphology Unremarkable Sodium 146 H (136-145) mmol/L Potassium 4.1 (3.5-5.1) mmol/L Chloride 120 H (98-107) mmol/L Carbon Dioxide 23 (21-32) mmol/L Anion Gap 3.0 (3-11) BUN 15 (7-18) mg/dl Creatinine 0.97 (0.6-1.4) mg/dl Est Cr Clr Drug Dosing 86.9 ml/min Est GFR ( Amer) 93.9 Est GFR (Non-Af Amer) 81.0 BUN/Creatinine Ratio 15.7 (10-20) Glucose 86 (70-99) mg/dl Calcium 7.4 L (8.5-10.1) mg/dl Blood Type Blood Type Recheck A Positive Antibody Screen Crossmatch 12/05/19 12/05/19 12/04/19 Range/Units 21:06 15:22 21:16 WBC (4.8-10.8) K/uL RBC (4.7-6.1) M/uL Hgb 8.6 L 9.9 L (14.0-18.0) g/dL Hct 25.5 L 28.5 L (42-52) % MCV (80-100) fL MCH (25-34) pg MCHC (32-36) g/dL RDW Std Deviation (36.4-46.3) fL RDW Coeff of Kody (11.5-14.5) % Plt Count (130-400) K/uL MPV (7.4-10.4) fL Immature Gran % (Auto) % Neut % (Auto) % Lymph % (Auto) % [place] % (Auto) % Eos % (Auto) % Baso % (Auto) % Neut # (Auto) (1.4-6.5) K/uL Lymph # (Auto) (1.2-3.4) K/uL [place] # (Auto) (0.11-0.59) K/uL Eos # (Auto) (0-0.5) K/uL Baso # (Auto) (0-0.2) K/uL Immature Gran # (Auto) (0.00-0.02) K/uL RBC Morphology Sodium (136-145) mmol/L Potassium (3.5-5.1) mmol/L Chloride (98-107) mmol/L Carbon Dioxide (21-32) mmol/L Anion Gap (3-11) BUN (7-18) mg/dl Creatinine (0.6-1.4) mg/dl Est Cr Clr Drug Dosing ml/min Est GFR ( Amer) Est GFR (Non-Af Amer) BUN/Creatinine Ratio (10-20) Glucose (70-99) mg/dl Calcium (8.5-10.1) mg/dl Blood Type A Positive Blood Type Recheck Antibody Screen NEGATIVE Crossmatch See Detail Medications Administered Current Inpatient Medications Acetaminophen (Tylenol) 650 mg PO Q4H PRN PRN Reason: Pain or Fever Stop: 01/04/20 01:03 Albuterol (Ventolin Hfa) 1 puffs INH Q4 PRN; Protocol PRN Reason: Shortness Of Breath Or Wheezin Stop: 01/04/20 01:03 Fluticasone/Vilanterol (Breo Ellipta 200/25 Mcg Inh) 1 puffs INH DAILY DEIDRE Stop: 01/04/20 08:59 Last Admin: 12/06/19 08:37 Dose: 1 puffs Documented by: Hydromorphone HCl (Dilaudid) 0.5 mg IV Q4H PRN PRN Reason: Pain Stop: 12/19/19 14:45 Last Admin: 12/05/19 15:30 Dose: 0.5 mg Documented by: Sodium Chloride (Nss 1000ml) 1,000 mls @ 80 mls/hr IV .[id number] DEIDRE Stop: 01/04/20 01:03 Last Admin: 12/06/19 04:42 Dose: 80 mls/hr Documented by: Nitroglycerin (Nitrostat) 0.4 mg SL UD PRN PRN Reason: Chest Pain Stop: 01/04/20 01:03 Ondansetron HCl (Zofran) 4 mg IV Q6H PRN PRN Reason: Nausea Stop: 01/04/20 01:03 Last Admin: 12/05/19 14:40 Dose: 4 mg Documented by:
[2019-12-06 10:54] LABS: Hematocrit (blood only) 22.2 % (42-52); Hemoglobin 7.6 g/dL (14.0-18.0)
--- NOTE | 2019-12-06 13:37 | Discharge Summary ---
Date of Service December 06, 2019 Admission HPI Per Admitting Provider A 64-year-old male with past medical history significant for asthma with severity to be determined, cirrhosis of liver, history of alcohol abuse, generalized osteoarthritis, he is status post colonoscopy today, had 6 polyps taken out, one of the polyp in cecal region. He says he went home and slept and woke up in the evening and had dinner around 5:30 p.m., after sometime of dinner felt a gurgling noise in the stomach, and then he has had several episodes of bloody bowel movements. In the ER, he still having bloody bowel movement, but his hemodynamics are stable. His hemoglobin is stable. ER physician talked to the GI, they want to observe in the hospital and if he continues to bleed, plan for colonoscopy tomorrow. Denies any abdominal pain, no nausea, no vomiting, no chest pain or shortness of breath. No cough, no headache, no blurred vision, no dizziness, no runny nose, no sore throat. Normal bladder movements. No rash. Currently, resting comfortable and hemodynamically stable. Admission Exam Per Admitting Provider GENERAL: The patient is of moderate build, not in acute distress. VITAL SIGNS: Temperature 36.5, pulse 84, respiratory rate 18, blood pressure 131/75, oxygen 97% room air. HEENT: No pallor, no icterus. NECK: No JVD, no neck masses, no carotid bruit. CARDIOVASCULAR: S1, S2 heard, regular rate and rhythm. No murmurs, no gallop. RESPIRATORY SYSTEM: Normal AP diameter. No accessory muscle use. No wheezing, no crackles. ABDOMEN: Soft, bowel sounds present, nontender. No distention, no guarding, no rigidity. CENTRAL NERVOUS SYSTEM: Cranial nerves II-XII grossly intact, nonfocal. EXTREMITIES: No edema, no erythema. Principal Diagnosis Post polypectomy bleed Discharge Exam Physical Exam: Lying in bed in no acute distress, some discomfort in his abdomen Constitutional: well developed, well nourished, not ill appearing Eyes: PERRL, EOMI, conjunctivae normal, anicteric sclerae ENMT: external ear and nose normal, oropharynx normal Neck: trachea midline, no thyromegaly Respiratory: normal respiratory effort; no respiratory distress Auscultation: lungs clear to auscultation bilaterally Cardiovascular: Rate/Rhythm: regular rate and regular rhythm Heart Sounds: no murmur Gastrointestinal (Abdomen): Inspection/Auscultation: abdomen normal to inspection, + Only slightly tender to palpation (Lower quadrants), abdomen soft; no guarding Musculoskeletal: No acute arthritis involving any joints, moves extremities spontaneously and without difficulty Neuro/ Psych: Alert and oriented x3, no facial asymmetry, speech fluent, answers questions appropriately, moves all extremities; no focal motor deficits Discharge Data Allergies Allergy/AdvReac Type Severity Reaction Status Date / Time Fish Containing Products Allergy Severe ANAPHYLAXIS Verified 12/04/19 21:46 levofloxacin Allergy Intermediate SOB-HIVES Verified 12/04/19 21:46 Penicillins Allergy Intermediate SOB--HIVES Verified 12/04/19 21:46 Consultations 12/04/19 22:02 ED Decision to Admit Stat 12/05/19 01:04 Consult Case Management - Discharge Planning Routine 12/05/19 08:00 Consult Gastroenterology Routine Procedures Performed Operation Date: 12/05/19 15:30 Actual Procedures p Colonoscopy Hemostasis - [facility] Course (1) Lower gastrointestinal hemorrhage: Bright red blood per rectum following multiple polypectomy Significant drop in hemoglobin and associated with some abdominal pain GI consulted Now status post colonoscopy and epinephrine injection, placement of 7 clips and cauterization of the bleeding area (12/05/2019) Has been feeling better following the procedure Unfortunately had about 3 large bowel movements, bloody, overnight Contacted by GI this morning (12/05), recommend transfer to the tertiary center with IR availability for further evaluation We will monitor CBC Hemoglobin at 4 AM 8.4 Hemoglobin at 9 PM last evening, 8.6 Remains hemodynamically stable (2) Post-polypectomy bleeding: Has had about 6 polyps removed on 12/04/2019 Spotting blood was seen in the cecum secondary to previous polypectomy procedure. The area was successfully clipped and cauterized No aspirin and/or NSAID use for at least 1 week If rebleeds will need to transfer to referral center with IR capability His other medical conditions including asthma,Possible cirrhosis with history of alcoholism remains stable Discussed transfer with [facility] in [place], Dr. Longoria kindly accepted the patient. Total Time Total Time Spent Total Time Spent (In Minutes): 35 Total Time Includes: Examination of the Patient, Discharge Planning, Medication Reconciliation and Communication With Other Providers Discharge Plan Discharge Items Patient Disposition: Transfer Acute Care Hospital Reason For Visit: RECTAL BLEED Discharge Diagnosis: Post polypectomy bleed Activity: Per Instructions section Non-emergency contact: Hospitalist and Specialist Call non-emergency contact if: you have any medication questions and your symptoms worsen Follow-up/Referrals: Sami Kwon [Primary Care Provider] - Diet: Clear liquid Addtl Attending Provider Instructions: Patient underwent colonoscopy with clipping yesterday, however continues to have bloody bowel movements, about 3 overnight. Recommended by GI to transfer, so patient can have IR evaluation. Contacted [facility] in [place], Dr. Longoria kindly accepted the patient. Pending Studies at Discharge: No Stand-Alone Forms: My [facility] Skilled Items Patient informed of condition?: Yes DNR: No Discharge Level of Care: Other Communicable Disease: No Discharge Prognosis: Other Lines: Peripheral IV Urinary Catheter: No Medications and DC Order Prescriptions: Continued fluticasone propion-salmeterol [Wixela Inhub] 250-50 mcg/dose blister with device 1 inh INHALATION BID RF: 0 albuterol sulfate 90 mcg/actuation HFA aerosol inhaler 1 puff INHALATION Q4 PRN (Reason: Shortness Of Breath Or Wheezing) RF: 0 Centrum Silver Men 300-600-300 mcg Tablet 1 tab PO DAILY RF: 0 Discharge Orders: Discharge Order (Routine); Ordered 12/06/19 Ordered By: Isaac Bermudez/Other Patient Handouts: Bleeding Gastrointestinal, Anatomy of the Digestive System Admission Data Admit Date/Time: 12/04/19 22:29 Attending Provider: Isaac Ponce Admit Provider: Casey Allen Primary Care Provider: Sami Kwon Other Providers: Casey Allen ; Dwaine Ragland ; Rocío Palmer ; Toby Hassan ; Tammy Graham ; Mike Melendez ; Gal Stephens ; Dimitri Gomez ; Verónica Norris ; Dilip Garcia ; Roger Rodriguez ; Toshia Curiel ; Selena Bermudez ; Jaja Lowe ; Queenie Sanon ; Fabian Sommer ; Dona Sena Other Interventions: Discharge Summary Assessment (RN) Last Done: 12/05/19 14:22
== END 2019-12-06 15:52 | disposition short-term general hospital (02) ==
LOC: 2N 20:48 → ED 20:48 → EDINP 20:48 → SUATTDRO 22:29 → 2N 12-05